=== PATIENT | male | born 1975 | race Caucasian/White ===

== ENCOUNTER 2022-01-06 09:46 | Inpatient (IN) | payer SELFPAY ==
[~2022-01-06] VITALS: Ht 175.3 cm; Wt 94.3 kg
[2022-01-06 09:49] VITALS: BP 159/110
--- NOTE | 2022-01-06 09:55 | NUR ---
Patient ambulated to bed 09 with steady/even gait.
--- NOTE | 2022-01-06 09:58 | NUR ---
46 y/o M BIB self from home for evaluation and treatment of alcohol withdrawal symptoms. Patient A&Ox4, ambutory, states he wants medical detox for etoh. 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 Reports last drink: half hour ago with vodka. Pt states body shakes, cold sweats, anxiety, nausea/vomiting x 3 days, headache. states received treatment in the past, however, can't get past the withdrawal symptoms. Denies tremors, fevers, diarrhea, chest pain, abdominal pain. Denies meds prior to arrival. Bed locked in lowest position, side rails x 1. PMH: HTN Meds: amlodipine NKDA
[2022-01-06] MEDS ORDERED: LORazepam 1 MG TAB PO ONE (10:00)
--- NOTE | 2022-01-06 10:10 | NUR ---
Dr. Mejia is evaluating patient at bedside
[2022-01-06] MEDS ORDERED: NACL 0.9% 1,000 ML IV ONE (10:15)
[2022-01-06] MEDS ORDERED: ONDANSETRON 4 MG/2 ML VIAL IVP ONE (10:15)
--- NOTE | 2022-01-06 10:45 | NUR ---
RAD at bedside
[2022-01-06] MEDS ORDERED: DICYCLOMINE HCL LIQUID 20 MG, ALUMINUM HYD/MAG/SIMETHICONE 30 ML, LIDOCAINE VISCOUS 2% ... PO ONE ×3 (10:50)
--- NOTE | 2022-01-06 10:55 | NUR ---
Bedside report endorsed to JAMIE Lord.
[2022-01-06] MEDS ORDERED: ALUMINUM HYD/MAG/SIMETHICONE 30 ML UDC ONE (10:59)
[2022-01-06] MEDS ORDERED: DICYCLOMINE HCL LIQUID 10 MG/5 ML UDC ONE (11:00)
--- NOTE | 2022-01-06 11:00 | NUR ---
Duran shai and blood sample collected, handed to CPT Dorothy at ER bedside
[2022-01-06 11:30] LABS: BASOPHILS % (AUTO) 0.3 % (0.0-2.0); HEMATOCRIT 47.1 % (36-52); HEMOGLOBIN 16.1 g/dL (12.0-18.0); LYMPHOCYTES # (AUTO) 1.3 K/uL (2.0-11.5); LYMPHOCYTES % (AUTO) 14.1 % (20.5-51.1); MEAN CORPUSCULAR HEMOGLOBIN 30 pg (27-31); MEAN CORPUSCULAR HGB CONC 34 g/dL (33-37); MEAN CORPUSCULAR VOLUME 88.6 fL (80-94); MONOCYTES # (AUTO) 0.2 K/uL (0.8-1.0); MONOCYTES % (AUTO) 2.5 % (1.7-9.3); NEUTROPHILS # (AUTO) 7.8 K/uL (1.8-7.7); NEUTROPHILS % (AUTO) 83.1 % (42.2-75.2); PLATELET COUNT (AUTO) 203 K/uL (140-450); RED BLOOD CELL COUNT(AUTO) 5.32 MIL/uL (4.20-6.10); WHITE BLOOD COUNT (AUTO) 9.4 K/uL (4.8-10.8)
[2022-01-06] MEDS ORDERED: AMLO2.5T PO (11:30)
[2022-01-06 11:54] LABS: ALBUMIN 4.5 g/dL (3.4-5.0); ANION GAP 22.9 (8-16); ASPARTATE AMINOTRANSFERASE 120 U/L (15-37); CARBON DIOXIDE 21.9 mmol/L (21-32); CHLORIDE 94 mmol/L (98-107); GFR ARICAN-AMERICAN 103 mL/min (>90); GLUCOSE 108 mg/dL (74-106); POTASSIUM 3.8 mmol/L (3.5-5.1); SODIUM SERUM 135 mmol/L (136-145); TOTAL BILIRUBIN 1.2 mg/dL (0.0-1.0); UREA NITROGEN, BLOOD 9 mg/dL (7-18)
--- NOTE | 2022-01-06 12:00 | NUR ---
Patient will be admitted to care of Dr. Sorto. Admited to Telemetry. Will go to [id number]. Belongings list completed. Report to JAMIE Lord.
--- NOTE | 2022-01-06 12:03 | NUR ---
REPORT GIVEN BY LICENSE EXAMINERJAMIE SCHMITZ AT BEDSIDE. PT A/O X4. NO SOB OR RESPIRATORY DISTRESS. ON RA. MILD TREMORS NOTED. DENIES PAIN AT THIS TIME. STATES LAST DRINK 3 HOURS AGO. STATES HE HAS BEEN DRINKING THE LAST 3 WEEKS D/T CHANGE OF JOB AND 2 SONS IN [place] NOT DOING WELL. PT COOPERATIVE. DENIES PAIN AT THIS TIME. SEIZURE PRECAUTION INITIATED. LAC #20 DRESSING C/D/I. PT ON REGULAR DIET. NEEDS ALL MET AT THIS TIME. SAFETY MEASURES IN PLACE. WILL CONTINUE TO MONITOR CLOSELY.
[2022-01-06] MEDS ORDERED: ACETAMINOPHEN 325 MG TAB PO PRN (12:45)
[2022-01-06] MEDS ORDERED: DOCUSATE SODIUM 100 MG GELCAP PO PRN (12:45)
[2022-01-06] MEDS ORDERED: guaiFENesin DM 200/20 MG-10 ML 10 ML UDC PO PRN (12:45)
[2022-01-06] MEDS ORDERED: POTASSIUM CHLORIDE 10 MEQ TABER PO PRN (12:45)
[2022-01-06] MEDS ORDERED: HYDROcodone/APAP 7.5/325 MG 1 TAB PO PRN (12:45)
[2022-01-06] MEDS ORDERED: ZOLPIDEM 5 MG TAB PO PRN (12:45)
--- NOTE | 2022-01-06 14:00 | NUR ---
EXPLAINED TO PT TO PEE IN URINE CUP FOR UA AND DRUG SCREEN. PT VERBALIZED UNDERSTANDING.
[2022-01-06 15:16] LABS: CHOL/HDL RATIO 3.9 (1-4.5); FREE T4 (FREE THYROXINE) 0.94 ng/dL (0.76-1.46); PHOSPHORUS 3.4 mg/dL (2.5-4.9)
[2022-01-06] MEDS: ONDANSETRON 4 MG/2 ML VIAL IM/IVP PRN ×2 (15:24→20:58)
[2022-01-06] MEDS: NACL 0.9% 1,000 ML IV SCH ×2 (15:25→22:45)
--- NOTE | 2022-01-06 15:44 | NUR ---
PT STATES NAUSEA. PRN ZOFRAN GIVEN. NO VOMITING SINCE ADMITTED TO MS/TELE FLOOR. HR 98. DENIES PAIN. IVF INFUSING. VOMIT BACKS PROVIDED. WILL KEEP PT NPO TILL US OF LIVER. NEEDS ALL MET. SAFETY MEASURES/SEIZURE PRECAUTIONS IN PLACE. WILL MONITOR CLOSELY. Addendum: 01/06/22 at 1833 by Agency Nurse 24, RN RN PT STATES NAUSEA. PRN ZOFRAN GIVEN. NO VOMITING SINCE ADMITTED TO MS/TELE FLOOR. HR 98. DENIES PAIN. IVF INFUSING. VOMIT BAGS PROVIDED. WILL KEEP PT NPO TILL US OF LIVER. NEEDS ALL MET. SAFETY MEASURES/SEIZURE PRECAUTIONS IN PLACE. WILL MONITOR CLOSELY.
[2022-01-06 16:00] VITALS: BP 120/63
[2022-01-06] MEDS: LORazepam 1 MG TAB PO SCH ×2 (17:21→23:48)
--- NOTE | 2022-01-06 18:00 | NUR ---
DINNER HELD. ULTRASOUND CONTACTED.
--- NOTE | 2022-01-06 19:17 | NUR ---
REPORT GIVEN TO NIGHTSHIFT JAMIE GERONIMO FOR CONTINUITY OF CARE. ENDORSED TO GIVE SCHEDULED AMLODIPINE.
[2022-01-06] MEDS: amLODIPine 5 MG TAB PO SCH (19:23)
[2022-01-06 20:00] VITALS: BP 122/69
--- NOTE | 2022-01-06 20:32 | NUR ---
RECEIVED REPORT FROM AM NURSE. PATIENT IS WELL RESTED IN BED AAOX4. NO SOB NOTED. RESPIRATION EVEN UNLABORED. ABLE TO AMBULATE TO THE RESTROOM. SAFETY PRECAUTIONS ARE IN PLACE. IVF NS RUNNING AT 100 ML/HR. CALL LIGHT WITHIN REACH. NO COMPLAINTS OF PAIN. WILL CONTINUE TO MONITOR PT.
--- NOTE | 2022-01-06 20:58 | NUR ---
PT COMPLAINTS OF NAUSEA, PRN ZOFRAN ADMINISTERED MD ORDERED.
[2022-01-06 22:20] LABS: BARBITURATE, URINE NEGATIVE ng/ml (NEG <=200); BENZODIAZEPINE, URINE NEGATIVE ng/mL (NEG <=200); CANNABINOID, URINE NEGATIVE ng/mL (NEG <=50); COCAINE, URINE NEGATIVE ng/mL (NEG <=300); OPIATE, URINE NEGATIVE ng/mL (NEG <=2000); PHENCYCLIDINE SCREEN,URINE NEGATIVE ng/mL (NEG <=25)
[2022-01-06 22:21] LABS: APPEARANCE,URINE CLEAR (CLEAR); BILIRUBIN,URINE NEGATIVE (NEGATIVE); BLOOD, URINE 1+ (NEGATIVE); COLOR,URINE YELLOW (YELLOW); LEUKOCYTE ESTERASE ,URINE NEGATIVE (NEGATIVE); NITRITE, URINE NEGATIVE (NEGATIVE); UGLUCOSE NEGATIVE (NEGATIVE)
[2022-01-06 22:37] LABS: RBC,URINE 0-5 /HPF (0-5); WBC,URINE 0-5 /HPF (0-5)
--- NOTE | 2022-01-06 22:45 | NUR ---
PT COMPLAINTS OF INSOMNIA, JOHN CLINTON ADMINISTERED MD ORDER. Addendum: 01/06/22 at 2251 by Jenny Jacobs RN OZ FOR INSOMNIA WAS ADMINISTERED AT 2223, NOT 2245. KIM
[2022-01-07] VITALS: BP 114/57
--- NOTE | 2022-01-07 | NUR ---
PT IS ASLEEP, ON STABLE CONDITION. NO SOB OR DISTRESS. SAFETY MEASURES IN PLACE
--- NOTE | 2022-01-07 02:00 | NUR ---
PT ASLEEP. NO SOB OR DISTRESS. SAFETY MEASURES IS IN PLACE. CONTINUE MONITORING.
[2022-01-07 04:00] VITALS: BP 118/65
--- NOTE | 2022-01-07 04:10 | NUR ---
PT ASLEEP, COOPERATIVE WITH VITAL SIGNS CHECKED. NO SOB OR DISTRESS. SAFETY MEASURES IN PLACE. CONTINUE MONITORING.
[2022-01-07] MEDS: LORazepam 1 MG TAB PO SCH (06:23)
--- NOTE | 2022-01-07 06:47 | NUR ---
PATIENT HAS BEEN SCREENED AND CATEGORIZED LOW NUTRITION RISK. PATIENT WILL BE SEEN WITHIN 7 DAYS OF ADMISSION. 01/13/22 NIGEL FALCON MS, RDN
[2022-01-07 07:08] LABS: T4 (THYROXINE) 6.8 ug/dL (4.5-12.0)
[2022-01-07 07:26] LABS: BASOPHILS % (AUTO) 0.6 % (0.0-2.0); EOSINOPHILS % (AUTO) 0.4 % (0.0-4.0); HEMATOCRIT 39.4 % (36-52); HEMOGLOBIN 13.6 g/dL (12.0-18.0); LYMPHOCYTES # (AUTO) 2.3 K/uL (2.0-11.5); MEAN CORPUSCULAR HEMOGLOBIN 30 pg (27-31); MEAN CORPUSCULAR HGB CONC 35 g/dL (33-37); MEAN CORPUSCULAR VOLUME 87.8 fL (80-94); MONOCYTES # (AUTO) 0.5 K/uL (0.8-1.0); MONOCYTES % (AUTO) 10.8 % (1.7-9.3); NEUTROPHILS # (AUTO) 1.7 K/uL (1.8-7.7); NEUTROPHILS % (AUTO) 37.2 % (42.2-75.2); PLATELET COUNT (AUTO) 110 K/uL (140-450); RED BLOOD CELL COUNT(AUTO) 4.49 MIL/uL (4.20-6.10); RED CELL DISTRIBUTION WIDTH 14.7 % (11.6-13.7); WHITE BLOOD COUNT (AUTO) 4.5 K/uL (4.8-10.8)
--- NOTE | 2022-01-07 07:30 | NUR ---
REPORT RECEIVED FROM [employer]. PT A/O X3. NO SOB OR RESPIRATORY DISTRESS. ON RA. PT NOTED WITH HAND TREMORS WHEN EXTENDED. PT STATES MILD ANXIETY. PINPRICK SENSATION/ MODERATE PARASTHESIAS ON BUE. PT STATES GENERALIZED PAIN THROUGHOUT. NO VISUAL DISTURBANCES. MODERATE NAUSEA WITH NO VOMITING. MILD ANXIETY AT THIS TIME. PT COOPERATIVE. WILL CONTACT MD REGARDING NEW ORDERS. ON TELE, SR. NEEDS ALL MET AT THIS TIME. SAFETY PRECAUTIONS IN PLACE. SEIZURE PRECAUTIONS IN PLACE. WILL CLOSELY MONITOR.
--- NOTE | 2022-01-07 07:30 | NUR ---
RECEIVED REPORT FROM JAMIE CRAWFORD. PT A/O X4. NO SOB OR RESPIRATORY DISTRESS. ON RA. MODERATE HAND TREMORS NOTED. STATES PINPRICK AND PARESTHESIA OF BUE. MILD SWEAT NOTED. ON REGULAR DIET. NS @ 100 ML/HR. SKIN INTACT. US COMPLETED YESTERDAY. NEEDS ALL MET AT THIS TIME. SAFETY PRECAUTIONS IN PLACE. WILL CONTINUE TO MONITOR CLOSELY.
[2022-01-07 07:33] LABS: ANION GAP 12.5 (8-16); CARBON DIOXIDE 27.6 mmol/L (21-32); CREATININE 0.8 mg/dL (0.6-1.3); POTASSIUM 3.1 mmol/L (3.5-5.1)
--- NOTE | 2022-01-07 07:39 | NUR ---
PT IS STABLE, NO SOB OR DISTRESS. ENDORSED TO DAY SHIFT NURSE FOR CONTINUITY OF CARE.
[2022-01-07 08:00] VITALS: BP 132/74
[2022-01-07] MEDS ORDERED: LORazepam 2 MG/ML VIAL IM/IVP PRN (08:10)
[2022-01-07] MEDS: amLODIPine 5 MG TAB PO SCH (08:31)
[2022-01-07] MEDS: chlordiazePOXIDE 25 MG CAP PO SCH ×3 (08:32→16:32)
[2022-01-07] MEDS: NACL 0.9% 1,000 ML IV SCH ×2 (08:48→15:23)
[2022-01-07] MEDS ORDERED: PANTOPRAZOLE 40 MG TABEC PO SCH (09:00)
[2022-01-07] MEDS ORDERED: MAG SULF 2000 MG/WATER PREMIX 50 ML IV SCH (09:00)
[2022-01-07] MEDS ORDERED: ATORVASTATIN 20 MG TAB PO SCH (09:00)
[2022-01-07] MEDS ORDERED: FOLIC ACID 1 MG TAB PO SCH (09:00)
[2022-01-07] MEDS ORDERED: THIAMINE 200 MG/2 ML VIAL IM SCH (09:00)
[2022-01-07] MEDS ORDERED: MULTIVITAMIN-12 10 ML, FOLIC ACID 1 MG in NACL 0.9% 1,000 ML IV SCH (09:30)
--- NOTE | 2022-01-07 10:59 | NUR ---
SPOKE WITH DR. CABRERA REGARDING MAGNESIUM LAB AND DISCONTINUING SCHEDULED MAGNESIUM SULFATE IVPB X1 DOSE. MD ORDER TO DISCONTINUE.
[2022-01-07 12:00] VITALS: BP 107/63
--- NOTE | 2022-01-07 15:30 | NUR ---
PT NOTED WITH MILD HAND TREMORS. NO SWEAT. STATES LITTLE ANXIETY. STATES PARASTHESIAS/PINPRICK SENSATION IS ON AND OFF. PT REFUSES PAIN MEDICATION/ATIVAN. IVF INFUSING. TOLERATING WELL. PT ANXIOUS TO GO HOME. STATES HE NEEDS A "HAIR FOLLICLE DRUG TEST" AND HAS MISSED WORK. EXPLAINED PT IS STILL UNDER OBSERVATION. PT VERBALIZED UNDERSTANDING. NEEDS ALL MET AT THIS TIME. SAFETY/SEIZURE PRECAUTIONS IN PLACE. WILL MONITOR.
[2022-01-07 16:00] VITALS: BP 132/84
--- NOTE | 2022-01-07 19:30 | NUR ---
REPORT GIVEN TO NIGHTSHIFT NURSE FOR CONTINUITY OF CARE.
--- NOTE | 2022-01-07 19:31 | NUR ---
RECEIVED REPORT FROM AM NURSE FOR CONTINUITY OF CARE. PATIENT IS RESTING IN BED AAOX4 ON ROOM AIR. NO S/S OF RESPIRATORY DISTRESS. BREATHING EVEN UNLABORED. NO COMPLAINTS OF PAIN. ALL SAFETY PRECAUTIONS ARE IN PLACE. CALL LIGHT WITHIN REACH.
--- NOTE | 2022-01-07 20:35 | NUR ---
PATIENT ELOPED. CLIENT SERVICES REPRESENTATIVE DR CABRERA MADE AWARE.
== END 2022-01-07 20:35 | disposition left against medical advice (07) | DRG 92 ==
LOC: MED 09:46 → MTU 11:02
PROVIDERS: ADMIT Family Medicine; ATTEND Family Medicine
DX: G92.9 Unspecified toxic encephalopathy (principal); E87.1 Hypo-osmolality and hyponatremia; F10.139 Alcohol abuse with withdrawal, unspecified; R56.9 Unspecified convulsions; R74.01 Elevation of levels of liver transaminase levels; E78.2 Mixed hyperlipidemia; Y90.9 Presence of alcohol in blood, level not specified; Z20.822 Contact with and (suspected) exposure to COVID-19
CPT/HCPCS: 36415; 71045; 76705; 80048; 80053; 80305; 81001; 82150; 83036; 83690; 83735; 83880; 84100; 84436; 84439; 84443; 84479; 84484; 85025; 85610; 85730; 87086; 93005; 96361; 96374; 99285; A9153; G0482; J2060; J2405; J3411; J3475; J3490; J7030; Q0092